=== PATIENT | male | born 1955 | race Asian ===

== ENCOUNTER 2023-01-01 13:11 | Emergency (ER) | payer MEDICARE, OTHER ==
[~2023-01-01] VITALS: Ht 167.6 cm; Wt 75.0 kg
[2023-01-01 13:21] VITALS: BP 131/72; PULSE 84; RESP 16; TEMP 98.6
[2023-01-01] MEDS ORDERED: TAMS-13 PO (13:23)
[2023-01-01] MEDS ORDERED: LOSA-381 PO (13:23)
[2023-01-01] MEDS ORDERED: METF-1211 PO (13:23)
[2023-01-01] MEDS ORDERED: METO25XL PO (13:23)
[2023-01-01] MEDS ORDERED: METO25 PO (13:23)
[2023-01-01] MEDS ORDERED: APIX5TAB PO (13:23)
[2023-01-01] MEDS ORDERED: ATOR40TA28 PO (13:23)
[2023-01-01] MEDS ORDERED: GENTAMICIN SULFATE 0.3% OPHTHALMIC SOLUTION 5 ML OD ONE (13:30)
== END 2023-01-01 13:52 | disposition home or self-care (01) ==
LOC: EMS 13:12
DX: H10.9 Unspecified conjunctivitis (principal); I25.10 Atherosclerotic heart disease of native coronary artery without angina pectoris; I10 Essential (primary) hypertension; E11.9 Type 2 diabetes mellitus without complications; Z88.8 Allergy status to other drugs, medicaments and biological substances
CPT/HCPCS: 99282; Z7502; Z7610